=== PATIENT | female | born 1975 | race Two or more races ===

== ENCOUNTER 2020-11-14 23:27 | Emergency (ER) | payer OTHER ==
--- NOTE | 2020-11-15 00:30 | ED Physician Documentation ---
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 she was diagnosed with pyelonephritis after w/h that included CT of her abdomen and pelvis, and it showed her right nephrosromy tube was in place, with other findings that were unchanged from previous exam (she has her lab tests and CT reading on her cell phone and shows these to me). she was given IV Levaquin and rx for same. 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 she then noted hematuria without clots. she called a medical advice hotline and was advised to take an antihistamine and go to ED for possible reaction to her levaquin. she took cetirizine and en route to ED her symptoms have resolved Review of Systems Constitutional: reports: Myalgias, Fatigue Respiratory: reports: Cough. denies: Dyspnea, Wheezing GI: reports: Nausea, Vomiting. denies: Abdominal Pain : reports: Hematuria Skin: denies: Rash PD PAST MEDICAL HISTORY - Past Medical History Past Medical History: Yes Cardiovascular: Hypertension - Past Surgical History Past Surgical History: Yes Other past surgical history: nephrostomy - Present Medications Home Medications: Ambulatory Orders Medication Instructions Recorded Confirmed Cefdinir 300 mg PO BID #28 cap 11/15/20 Cetirizine HCl [Zyrtec] 10 mg PO DAILY 11/15/20 11/15/20 Famotidine [Pepcid] 20 mg PO DAILY 11/15/20 11/15/20 Levofloxacin [Levaquin] 750 mg PO DAILY 11/15/20 11/15/20 Ondansetron HCl [Zofran] 4 mg PO Q8HR PRN 11/15/20 11/15/20 Potassium Citrate 10 meq PO TID 11/15/20 11/15/20 carvediloL [Coreg] 2 tab PO BID 11/15/20 11/15/20 - Allergies Allergies/Adverse Reactions: Allergies Allergy/AdvReac Type Severity Reaction Status Date / Time Sulfa (Sulfonamide Allergy Rash Verified 11/14/20 23:39 Antibiotics) PD ED PE NORMAL - Vitals Vital signs reviewed: Yes - General General: Alert and oriented X 3, No acute distress, Well developed/nourished - Neck Neck: Supple, no meningeal sign - Cardiac Cardiac: RRR, No murmur - Respiratory Respiratory: No respiratory distress, Clear bilaterally - Abdomen Abdomen: Soft, Non tender - Back Back: No CVA TTP, Other (right nephrostomy tube in place, site is without evidence of infection; clear yellow urine in bag) Results - Vitals Vitals: Oxygen O2 Source Room air PD MEDICAL DECISION MAKING - ED course Complexity details: considered differential, d/w patient ED course: patient has her CT results and blood work results available on her cell phone and showed them to me. She says she is feeling better compared to when she was evaluated two days ago at the urgent care center. Her white blood cell count was normal two days ago and she is afebrile in the emergency department. she also has the preliminary results of her urine culture, growing citrobacter freundii. it seems unlikely that her symptoms tonight were an allergic reaction to the Levaquin given that she had an intravenous those two days ago without incident, and tonight symptoms occurred nearly 24 hours after her first oral dose. However, patient and I discussed option of switching antibiotic, and a mutual decision was made to do so. she further reviewed her previous medical records on her cell phone, and was able to find that she had been treated in the past with Cedinir 300 mg daily without adverse reaction, and thus this is prescribed for her tonight. A dose of Rocephin was given in the ED prior to discharge. Departure - Departure Disposition: 01 Home, Self Care Clinical Impression: UTI (urinary tract infection) Qualifiers: Urinary tract infection type: acute pyelonephritis Qualified Code(s): N10 - Acute pyelonephritis Condition: Good Instructions: ED Kidney Infec Female Prescriptions: Cefdinir 300 mg PO BID #28 cap Comments: Stop the Levaquin and start the cefdinir as prescribed. Contact your attorney at law's office in the morning to inform them of this change. They will likely have the bacteria's sensitivites/resistances available later today, which should indicate whether the cefdinir will work on this infection. Discharge Date/Time: 11/15/20 02:30
[2020-11-15] MEDS ORDERED: cefTRIAXone 1 GM VIAL IM STA (01:58)
[2020-11-15] MEDS ORDERED: LIDOCAINE 1% 2 ML VIAL MC ONE (01:58)
[2020-11-15 02:29] VITALS: BP 140/90
== END 2020-11-15 02:30 | disposition home or self-care (01) ==
LOC: ED 23:27
DX: N10 Acute pyelonephritis (principal); B96.89 Other specified bacterial agents as the cause of diseases classified elsewhere; Z93.6 Other artificial openings of urinary tract status
CPT/HCPCS: 99283

== ENCOUNTER 2021-01-17 19:12 | Outpatient (CLI) | payer OTHER | END 2021-01-17 19:13 | disposition critical access hospital (66) | LOC: EMS 19:12 | DX: R20.0 Anesthesia of skin (principal); R53.1 Weakness; R51.9 Headache, unspecified | CPT/HCPCS: A0425; A0429 ==

== ENCOUNTER 2021-01-17 19:34 | Emergency (ER) | payer OTHER ==
[2021-01-17] MEDS ORDERED: MORPHINE 2 MG/ML CARPUJECT IVP STA (22:23)
[2021-01-17] MEDS ORDERED: ONDANSETRON 4 MG/2 ML VIAL IVP STA (22:23)
[2021-01-17 22:59] LABS: BASOPHILS % (AUTO) 0.5 %; EOSINOPHILS # (AUTO) 0.6 10^3/uL (0.0-0.7); EOSINOPHILS % (AUTO) 7.1 %; HCT - HEMATOCRIT 40.8 % (37.0-47.0); HGB - HEMOGLOBIN 12.6 g/dL (12.0-16.0); LYMPHOCYTES # (AUTO) 2.6 10^3/uL (1.5-3.5); MEAN CORPUSCULAR HGB CONC 30.9 g/dL (32.0-36.0); MEAN CORPUSCULAR VOLUME 90.7 fL (81.0-99.0); MEAN PLATELET VOLUME 9.9 fL (7.9-10.8); MONOCYTES # (AUTO) 0.8 10^3/uL (0.0-1.0); MONOCYTES % (AUTO) 8.7 %; NEUTROPHILS # (AUTO) 4.7 10^3/uL (1.5-6.6); NEUTROPHILS % (AUTO) 53.2 %; PLT - PLATELET COUNT 353 10^3/uL (130-450); RED CELL DISTRIBUTION WIDTH 14.2 % (12.0-15.0); WHITE BLOOD COUNT 8.7 x10^3/uL (4.8-10.8)
[2021-01-17 23:14] LABS: ALBUMIN 4.1 g/dL (3.2-5.5); BILIRUBIN,TOTAL 0.7 mg/dL (0.2-1.0); CALCIUM 8.9 mg/dL (8.5-10.3); CREATININE 2.5 mg/dL (0.4-1.0); POTASSIUM 4.2 mmol/L (3.5-5.0); TOTAL PROTEIN 8.4 g/dL (6.7-8.2)
--- NOTE | 2021-01-17 23:40 | ED Physician Documentation ---
PD HPI HEADACHE - Stated complaint Stated Complaint: NUMB/ TINGLING L FACE - Chief complaint Chief Complaint: Neuro - History obtained from History obtained from: Patient - History of Present Illness Timing - onset: Today Timing - onset during: Light activity Timing - details: Abrupt onset Pain level max: 3 Pain level now: 1 Worst headache ever?: No: Worst headache ever? Location: Left Quality: Aching Associated symptoms: Numbness. No: Fever, Stiff neck, Nausea, Vomiting, Weakness, Syncope, Seizure, Eye pain, Vision changes Improved by: Nothing Worsened by: Other (nothing) Contributing factors: No: Recent illness Similar symptoms before: Has not had sx before Recently seen: Not recently seen - Additional information Additional information: While walking in her house tonight, patient had sudden onset of left facial numbness. This was associated with left arm and hand shaking although she says she did not have weakness of the left arm. She also developed a left-sided headache, and spouse noted that patient had slurred speech. Patient felt some lightheadedness, unsure if she would describe it as sensation of feeling like she was going to pass out. The entire episode lasted one or two minutes and suddenly and completely resolved except for left-sided COOMBS. Review of Systems Constitutional: reports: Reviewed and negative Eyes: reports: Reviewed and negative Cardiac: reports: Reviewed and negative Respiratory: reports: Reviewed and negative GI: reports: Reviewed and negative : denies: Incontinent Musculoskeletal: reports: Reviewed and negative Neurologic: reports: Numbness, Headache. 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 - Present Medications Home Medications: Ambulatory Orders Medication Instructions Recorded Confirmed Cefdinir 300 mg PO BID #28 cap 11/15/20 Cetirizine HCl [Zyrtec] 10 mg PO DAILY 11/15/20 11/15/20 Famotidine [Pepcid] 20 mg PO DAILY 11/15/20 11/15/20 Ondansetron HCl [Zofran] 4 mg PO Q8HR PRN 11/15/20 11/15/20 Potassium Citrate [Potassium 10 meq PO TID 11/15/20 11/15/20 Citrate ER] carvediloL [Coreg] 2 tab PO BID 11/15/20 11/15/20 levoFLOXacin [Levaquin] 750 mg PO DAILY 11/15/20 11/15/20 - Allergies Allergies/Adverse Reactions: Allergies Allergy/AdvReac Type Severity Reaction Status Date / Time Sulfa (Sulfonamide Allergy Rash Verified 01/17/21 19:41 Antibiotics) - Social History Does the pt smoke?: No Smoking Status: Never smoker Does the pt drink ETOH?: No Does the pt have substance abuse?: No - Immunizations Immunizations are current?: Yes - POLST Patient has POLST: No PD ED PE NORMAL - Vitals Vital signs reviewed: Yes - General General: Alert and oriented X 3, No acute distress, Well developed/nourished - Neck Neck: Supple, no meningeal sign - Cardiac Cardiac: RRR - Respiratory Respiratory: No respiratory distress, Clear bilaterally - Abdomen Abdomen: Soft, Non tender - Neuro Neuro: Alert and oriented X 3, 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, No motor deficit (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, no drift with BUE extension), No sensory deficit (LTS intact including bilateral face), Normal speech, Other (symmetric facies) Eye Opening: Spontaneous Motor: Obeys Commands Verbal: Oriented GCS Score: 15 - Psych Psych: Normal mood, Normal affect Results - Vitals Vitals: Oxygen O2 Source Room air - Labs Labs: Laboratory Tests 01/17/21 01/17/21 22:55 22:55 WBC 8.7 RBC 4.50 Hgb 12.6 Hct 40.8 MCV 90.7 MCH 28.0 MCHC 30.9 L RDW 14.2 Plt Count 353 MPV 9.9 Neut # (Auto) 4.7 Lymph # (Auto) 2.6 Platte # (Auto) 0.8 Eos # (Auto) 0.6 Baso # (Auto) 0.0 Absolute Nucleated RBC 0.00 Nucleated RBC % 0.0 Sodium 137 Potassium 4.2 Chloride 105 Carbon Dioxide 22 Anion Gap 10.0 BUN 37 H Creatinine 2.5 H Estimated GFR (MDRD) 21 L Glucose 100 Calcium 8.9 Total Bilirubin 0.7 AST 22 ALT 22 Alkaline Phosphatase 89 Total Protein 8.4 H Albumin 4.1 Globulin 4.3 H Albumin/Globulin Ratio 1.0 Lipase 33 - Rads (name of study) [facility] Radiology: Prelim report reviewed, See rad report PD MEDICAL DECISION MAKING - ED course Complexity details: reviewed results, re-evaluated patient, considered differential, d/w patient, d/w family ED course: patient presents with left-sided headache associated with left facial numbness and left arm shaking although she denies weakness of the left arm. She also had slurred speech. The episode was brief, lasting one or two minutes before entirely resolving except for mild residual headache. She denies history of similar symptoms. differential diagnosis would include TIA, although headache would be atypical. Furthermore, her description of the left arm shaking but not being weak would be unusual for a TIA. This is still considered part of the differential diagnosis and discussed with the patient. Her elevated BUN and creatinine are approximating her baseline per patient. She says her creatinine generally runs in the mid twos and tonight it is 2.5. Results discussed with patient and she is comfortable with discharge home. I explained that she will likely need further testing and should return to the ER if worse in anyway. Departure - Departure Disposition: 01 Home, Self Care Clinical Impression: Near syncope Condition: Good Instructions: ED Near Syncope Unkn Comments: Contact your primary care provider to arrange for next available appointment; further testing might be needed even if your symptoms do not return Discharge Date/Time: 01/18/21 00:10
[2021-01-18 00:09] VITALS: BP 154/105
--- NOTE | 2021-01-18 07:42 | CT Report ---
PROCEDURE: HEAD WO INDICATIONS: COOMBS, aphasia (resolved) TECHNIQUE: Noncontrast 4.5 mm thick angled axial sections acquired from the foramen magnum to the vertex. For r adiation dose reduction, the following was used: automated exposure control, adjustment of mA and/or kV according to patient size. COMPARISON: None. FINDINGS: Image quality: Excellent. CSF spaces: Basal cisterns are patent. No extra-axial fluid collections. Ventricles are normal in size and shape. Brain: No midline shift. No intracranial masses or hemorrhage. Maldonado-white matter interface is norm al. Skull and face: Calvarium and visualized facial bones are intact, without suspicious lesions. Sinuses: Visualized sinuses and mastoids are clear. IMPRESSION: No acute intracranial disease process. Reviewed by: Clemencia Kern MD, PhD on 01/18/2021 7:41 AM PDT Approved by: Clemencia Kern MD, PhD on 01/18/2021 7:41 AM PDT Station ID: [id number]
== END 2021-01-18 00:10 | disposition home or self-care (01) ==
LOC: EDUNIT# → ED 19:34
DX: R55 Syncope and collapse (principal); I10 Essential (primary) hypertension
CPT/HCPCS: 36415; 80053; 83690; 85025; 96374; 96375; 99284

== ENCOUNTER 2022-07-10 10:54 | Emergency (ER) | payer OTHER ==
--- NOTE | 2022-07-10 11:20 | ED Physician Documentation ---
History of Present Illness - Stated complaint Stated Complaint: ABD PX - Chief complaint Chief Complaint: Abd Pain - Additonal information Additional information: 46-year-old female presents to the emergency department for evaluation of sudden onset left mid severe abdominal pain that began about an hour prior to arrival. She vomited once. No fevers. No dysuria or urinary symptoms. No recent diarrhea. Past surgical history most significant for total abdominal hysterectomy due to fibroids. Also has a known history of chronic kidney disease that she attributes to known renal colic. She does have a large abdominal hernia just left of the umbilicus that seems to be the source of the pain. With gentle pressure I was able to really reduce this incarcerated hernia and she immediately began to feel better. 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 - Present Medications Home Medications: Ambulatory Orders Medication Instructions Recorded Confirmed Cefdinir 300 mg PO BID #28 cap 11/15/20 Cetirizine HCl [Zyrtec] 10 mg PO DAILY 11/15/20 11/15/20 Famotidine [Pepcid] 20 mg PO DAILY 11/15/20 11/15/20 Potassium Citrate [Potassium 10 meq PO TID 11/15/20 11/15/20 Citrate ER] carvediloL [Coreg] 2 tab PO BID 11/15/20 11/15/20 levoFLOXacin [Levaquin] 750 mg PO DAILY 11/15/20 11/15/20 ondansetron HCL [Zofran] 4 mg PO Q8HR PRN 11/15/20 11/15/20 - Allergies Allergies/Adverse Reactions: Allergies Allergy/AdvReac Type Severity Reaction Status Date / Time NSAIDS (Non-Steroidal Allergy Unknown Verified 07/10/22 11:11 Anti-Inflamma Sulfa (Sulfonamide Allergy Rash Verified 01/17/21 19:41 Antibiotics) - Social History Does the pt smoke?: No Smoking Status: Never smoker Does the pt drink ETOH?: No Does the pt have substance abuse?: No - Immunizations Immunizations are current?: Yes - POLST Patient has POLST: No PD ED PE NORMAL - General General: Alert and oriented X 3, Well developed/nourished (Obese). No: No acute distress (Crying moaning and screaming in pain) - HEENT HEENT: Atraumatic - Neck Neck: Supple, no meningeal sign, No adenopathy - Cardiac Cardiac: RRR, No murmur - Respiratory Respiratory: No respiratory distress, Clear bilaterally - Abdomen Abdomen: Normal bowel sounds, Soft, Non tender, Other (Large reducible left mid abdominal hernia.) - Back Back: No CVA TTP, No spinal TTP, Other (Right-sided nephrostomy tube collecting yellow urine. 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 Eye Opening: Spontaneous Motor: Obeys Commands Verbal: Oriented GCS Score: 15 Results - Vitals Vitals: Vital Signs - 24 hr 07/10/22 07/10/22 07/10/22 11:05 11:18 13:10 Temperature 36.1 C L Heart Rate 77 63 Respiratory 20 14 Rate Blood Pressure 192/138 H 143/91 H O2 Saturation 99 100 Oxygen O2 Source Room air - Labs Labs: Laboratory Tests 07/10/22 07/10/22 11:22 11:22 WBC 7.8 RBC 4.83 Hgb 13.1 Hct 42.5 MCV 88.0 MCH 27.1 MCHC 30.8 L RDW 14.2 Plt Count 349 MPV 9.8 Neut # (Auto) 4.3 Lymph # (Auto) 2.6 [place]ill # (Auto) 0.5 Eos # (Auto) 0.4 Baso # (Auto) 0.0 Absolute Nucleated RBC 0.00 Nucleated RBC % 0.0 Sodium 135 Potassium 4.2 Chloride 105 Carbon Dioxide 19 L Anion Gap 11.0 BUN 33 H Creatinine 2.5 H Estimated GFR (MDRD) 21 L Glucose 168 H Calcium 8.9 Total Bilirubin 0.7 AST 20 ALT 17 Alkaline Phosphatase 90 Total Protein 8.2 Albumin 3.6 Globulin 4.6 H Albumin/Globulin Ratio 0.8 L Lipase 40 - Rads (name of study) CT abd Radiology: Final report received (Small bowel and mesentery containing umbilical hernia with mesenteric congestion. May suggest early incarceration. 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 Hydroureter the left pelvic inlet. Right nephrostomy percutaneous tube. Cholelithiasis), See rad report PD Medical Decision Making - ED course Complexity details: reviewed results, re-evaluated patient, d/w patient, d/w family, d/w otm consultant (Jose) Reviewed Lab Results: I personally evaluated the labs and find no leukocytosis or thrombocytopenia. We do note modest chronic kidney disease with a BUN of 33 and a creatinine of 2.5. This is essentially unchanged from baseline. Social Determinants of Health: She lives with her and partner at home. They have no social concerns upon discharge ED course: 46-year-old female presents emergency department for evaluation of acute onset left-sided abdominal pain at the site of her known umbilical hernia. She did vomit in route to the emergency department. On presentation she appeared acutely painful however I was able to modestly reduce the umbilical hernia with nearly 90% improvement in pain. We did obtain CBC and electrolytes that showed a preserved and unchanged chronic kidney disease with a BUN of 33 and a creatinine of 2.5. CBC showed no leukocytosis. A CT of the abdomen did show moderate left-sided umbilical hernia containing mesentery and small bowel with some mesenteric congestion. The radiologist discussed these findings with me. I have reevaluated the patient at the bedside and she is free of pain. The hernia is soft and appears to be nearly fully reducible. I also discussed this case with on-call surgeon Dr. Sheridan. She recommends that if the patient is tolerating sips of clear liquids and she does have a reduced hernia she is stable for discharge home with emergent return precautions. Given the complex surgical abdominal history of this patient as well as her chronic kidney disease she is likely best served at an outlying facility that can manage kidney disease as well as her nephrostomy tube. Patient is discharged home in stable condition. Emergent return precautions discussed Departure - Departure Disposition: 01 Home, Self Care Clinical Impression: Umbilical hernia, incarcerated Condition: Stable Record reviewed to determine appropriate education?: Yes Comments: Kathy jain were seen today in the emergency department for sudden pain on the left side of your abdomen at the site where your hernia is. I was able to fully reduce this hernia. The CT scan does show however that you have both bowel and mesentery/fat-containing hernia in this region. It is important that you follow closely with your primary doctor. You will need referral to a surgeon for longer-term evaluation and to determine if you would benefit from surgery to repair this hernia. If you develop sudden severe pain such as that again you are to lay completely flat. You or your partner should put persistent gentle pressure on your hernia until you are able to feel it moving back in. This is called reduction. If you do not have success with this you will need to return immediately to the ER.
[2022-07-10 11:26] LABS: BASOPHILS % (AUTO) 0.5 %; EOSINOPHILS # (AUTO) 0.4 10^3/uL (0.0-0.7); EOSINOPHILS % (AUTO) 4.5 %; HCT - HEMATOCRIT 42.5 % (37.0-47.0); HGB - HEMOGLOBIN 13.1 g/dL (12.0-16.0); LYMPHOCYTES # (AUTO) 2.6 10^3/uL (1.5-3.5); LYMPHOCYTES % (AUTO) 33.2 %; MEAN CORPUSCULAR HEMOGLOBIN 27.1 pg (27.0-31.0); MEAN CORPUSCULAR HGB CONC 30.8 g/dL (32.0-36.0); MEAN PLATELET VOLUME 9.8 fL (7.9-10.8); MONOCYTES # (AUTO) 0.5 10^3/uL (0.0-1.0); MONOCYTES % (AUTO) 5.8 %; NEUTROPHILS # (AUTO) 4.3 10^3/uL (1.5-6.6); NEUTROPHILS % (AUTO) 55.7 %; PLT - PLATELET COUNT 349 10^3/uL (130-450); RED BLOOD COUNT 4.83 10^6/uL (4.20-5.40); RED CELL DISTRIBUTION WIDTH 14.2 % (12.0-15.0); WHITE BLOOD COUNT 7.8 x10^3/uL (4.8-10.8)
[2022-07-10] MEDS ORDERED: ONDANSETRON 4 MG/2 ML VIAL IVP STA (11:28)
[2022-07-10] MEDS ORDERED: HYDROmorphone 1 MG/ML CARPUJECT IVP STA (11:28)
[2022-07-10 11:39] LABS: ALBUMIN 3.6 g/dL (3.2-5.5); ALBUMIN/GLOBULIN RATIO 0.8 (1.0-2.2); BILIRUBIN,TOTAL 0.7 mg/dL (0.2-1.0); CALCIUM 8.9 mg/dL (8.5-10.3); CREATININE 2.5 mg/dL (0.4-1.0); POTASSIUM 4.2 mmol/L (3.5-5.0); TOTAL PROTEIN 8.2 g/dL (6.7-8.2)
--- NOTE | 2022-07-10 13:58 | CT Report ---
PROCEDURE: ABDOMEN/PELVIS WO INDICATIONS: Mid abdominal pain; ? incarcerated henria TECHNIQUE: Noncontrast 5 mm thick sections acquired from the diaphragms to the symphysis. 5 mm coronal and sagi ttal reformats were then performed. For radiation dose reduction, the following was used: automated exposure control, adjustment of mA and/or kV according to patient size. COMPARISON: None. FINDINGS: Image quality: Excellent. ABDOMEN: Lung bases: Lung bases are clear. Heart size is normal. Solid organs: Liver and spleen are normal in size. Gallbladder is distended and contains probable d ependently layering calculi. No definite wall thickening. Pancreas is normal in contours. No adrena l nodules. The left kidney is dysplastic with marked, chronic appearing hydronephrosis, near complete thinning o f the cortex, a few dependently layering calculi in the lower pole, and moderate hydroureter to the l evel of the pelvic inlet. There is a right nephrostomy tube with the pigtail curling in the lower kenia e calyx. No visible right hydronephrosis. No right-sided hydroureter or ureteral calculi. Peritoneum and bowel: There is a 4.6 cm fascial defect in the anterior abdominal wall at the level of the umbilicus. Through this, there are a few loops of herniated small bowel as well as prominent bra nches of mesenteric vasculature.. Mesentery of the small bowel demonstrates moderate congestion. No v isible free fluid in the hernia sac. There is no evidence of small bowel obstruction. The stomach is decompressed. There is mild distal de scending and sigmoid colon diverticulosis. Nodes and vessels: No retroperitoneal or mesenteric adenopathy by size criteria. Aorta and inferior vena cava are normal in caliber. PELVIS: Genitourinary: The urinary bladder is completely decompressed, likely from disuse. The uterus is abse nt. No ovarian tissue seen.. Miscellaneous: No inguinal hernias or adenopathy. Bones: No suspicious bony lesions. No vertebral body compression fractures. IMPRESSION: 1. Small bowel and mesentery containing moderate-sized umbilical hernia with mesenteric congestion. A lthough there is no distal small bowel obstruction, the degree of mesenteric congestion suggests this may be an early incarcerated hernia. 2. 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 There is hydroureter to the leve l of the pelvic inlet where there may be an iatrogenic termination of the ureter. 3. No evidence of right-sided hydronephrosis. The right collecting system is drained with a lower kenia e percutaneous nephrostomy tube. 4. Cholelithiasis. 5. Findings discussed with Colleen Rubio in the emergency room at 1355 hours. Reviewed by: Yolis Crews MD on 07/10/2022 1:57 PM PST Approved by: Yolis Crews MD on 07/10/2022 1:57 PM PST Station ID: [id number]
[2022-07-10 14:19] VITALS: BP 125/86
== END 2022-07-10 14:31 | disposition home or self-care (01) ==
LOC: ED 10:54
DX: K42.0 Umbilical hernia with obstruction, without gangrene (principal); N18.9 Chronic kidney disease, unspecified; Z93.6 Other artificial openings of urinary tract status
CPT/HCPCS: 36415; 74176; 80053; 83690; 85025; 96374; 96375; 99282; 99284; J1170